=== PATIENT | female | born 1950 | race Caucasian/White ===

== ENCOUNTER 2017-05-05 05:22 | Observation (INO) | payer MEDICARE, BC ==
[2017-05-05] VITALS (14 sets, daily range): BP systolic 104–148; BP diastolic 49–76; PULSE 62–75; TEMP 98–98.7
[~2017-05-05] VITALS: Ht 162.6 cm; Wt 80.7 kg
[~2017-05-05 05:22] MED LIST: ASPI325T6 PO; HOME MEDS PO; NO HOME MEDICATIONS; [UNRECOGNIZED DRUG - OTHER] PO
[2017-05-05 05:55] LABS: BASO # 0.1 (0.0-0.2); BASO % 1.1 % (0.0-2.0); EOS # 0.1 (0.0-0.7); EOS % 1.4 % (0-4.0); GRAN # 3.8 (1.4-6.5); GRAN % 53.6 % (42.2-75.2); HEMATOCRIT 41.2 % (37.0-47.0); HEMOGLOBIN 13.7 g/dl (12.5-16.0); LYMPH # 2.5 (1.2-3.4); MEAN CELL VOLUME 85 fl (80.0-100.0); MEAN CORPUSCULAR HEMOGLOBIN 28 pg (27.0-31.0); MEAN CORPUSCULAR HGB CONC 33 g/dl (33.0-37.0); MEAN PLATELET VOLUME 10.2 fl (7.4-10.4); MONO # 0.6 (0.1-0.6); MONO % 8.5 % (1.7-9.3); PLATELET COUNT 266 K/mm3 (130-400); RED BLOOD COUNT 4.86 M/mm3 (4.10-5.30); REDCELL DISTRIBUTION WIDTH-CV 13.6 % (11.5-14.5)
[2017-05-05 06:00] LABS: INR 0.9 (0.8-3.0)
[2017-05-05 06:03] LABS: PARTIAL THROMBOPLASTIN TIME 30.9 SECONDS (26.0-37.0)
[2017-05-05 06:06] LABS: ADJUSTED CALCIUM 9.3 mg/dL (8.4-10.2); ALANINE AMINOTRANSFERASE 31 U/L (9-52); ALBUMIN 4.5 gm/dL (3.5-5.0); ALKALINE PHOSPHATASE 59 U/L (50-136); ANION GAP 10 mmol/L (7-16); BILIRUBIN,TOTAL 0.8 mg/dL (0.0-1.0); BLOOD UREA NITROGEN 10 mg/dL (7-17); CALCIUM 9.7 mg/dL (8.4-10.2); CARBON DIOXIDE 28 mmol/L (22-30); CHLORIDE 104 mmol/L (98-107); CREATININE, serum 0.77 mg/dL (0.52-1.25); GLUCOSE 103 mg/dL (74-106); POTASSIUM 5.2 mmol/L (3.4-5.0); SODIUM 142 mmol/L (137-145); TOTAL PROTEIN 7.4 gm/dL (6.4-8.2)
[2017-05-05 06:20] LABS: TROPONIN-I < 0.012 ng/mL (0.000-0.034)
[2017-05-05 08:55] LABS: POTASSIUM 4.2 mmol/L (3.4-5.0)
[2017-05-05 09:16] LABS: TROPONIN-I < 0.012 ng/mL (0.000-0.034)
[2017-05-05] MEDS ORDERED: ASPIRIN E.C. 8181 MG PO (16:51)
[2017-05-05] MEDS ORDERED: LIPITOR 10MG10 MG PO (16:51)
[2017-05-05] MEDS ORDERED: PROTONIX 40MG T40 MG PO (16:52)
[2017-05-05] MEDS ORDERED: NAPROSYN500 MG PO (16:53)
== END 2017-05-05 17:41 | disposition home or self-care (01) ==
LOC: COL.ER 05:22 → MEDICAL 06:40
PROVIDERS: Family Medicine; Physician Assistant
DX: I25.10 Atherosclerotic heart disease of native coronary artery without angina pectoris (principal); E78.5 Hyperlipidemia, unspecified; I35.1 Nonrheumatic aortic (valve) insufficiency; Z90.710 Acquired absence of both cervix and uterus; Z90.49 Acquired absence of other specified parts of digestive tract; Z85.820 Personal history of malignant melanoma of skin; Z82.3 Family history of stroke; Z82.49 Family history of ischemic heart disease and other diseases of the circulatory system
CPT/HCPCS: C1769; G0378; J1644; J2250; J3010; Q9967

== ENCOUNTER 2019-09-14 13:28 | Emergency (ER) | payer MEDICARE, BC ==
[~2019-09-14] VITALS: Ht 162.6 cm; Wt 78.2 kg
[~2019-09-14 13:28] MED LIST changes: +ASPIRIN E.C. 8181 MG PO; +LIPITOR 10MG10 MG PO; +NAPROSYN500 MG PO; +PROTONIX 40MG T40 MG PO
[2019-09-14 14:16] VITALS: TEMP 97.7
[2019-09-14 15:26] LABS: BASO # 0.1 (0.0-0.2); BASO % 1.1 % (0.0-2.0); EOS # 0.1 (0.0-0.7); EOS % 1.4 % (0-4.0); GRAN # 4.3 (1.4-6.5); GRAN % 59.9 % (42.2-75.2); HEMOGLOBIN 15.1 g/dl (12.5-16.0); LYMPH # 2.1 (1.2-3.4); LYMPH % 29.4 % (20.0-51.0); MEAN CELL VOLUME 88 fl (80.0-100.0); MEAN CORPUSCULAR HEMOGLOBIN 28 pg (27.0-31.0); MEAN CORPUSCULAR HGB CONC 32 g/dl (33.0-37.0); MEAN PLATELET VOLUME 10.6 fl (7.4-10.4); MONO # 0.6 (0.1-0.6); MONO % 7.9 % (1.7-9.3); PLATELET COUNT 311 K/mm3 (130-400); RED BLOOD COUNT 5.35 M/mm3 (4.10-5.30); REDCELL DISTRIBUTION WIDTH-CV 13.3 % (11.5-14.5)
[2019-09-14 15:46] LABS: ALANINE AMINOTRANSFERASE 29 U/L (9-52); ALKALINE PHOSPHATASE 75 U/L (50-136); ANION GAP 11 mmol/L (7-16); AST,SGOT 23 U/L (15-37); BILIRUBIN,TOTAL 0.7 mg/dL (0.0-1.0); BLOOD UREA NITROGEN 13 mg/dL (7-17); CALCIUM 10.6 mg/dL (8.4-10.2); CARBON DIOXIDE 28 mmol/L (22-30); CHLORIDE 106 mmol/L (98-107); CREATININE, serum 0.75 (0.52-1.25); GLUCOSE 117 mg/dL (74-106); LIPASE 259 U/L (23-300); POTASSIUM 4.1 mmol/L (3.4-5.0); SODIUM 144 mmol/L (137-145)
[2019-09-14 15:48] LABS: C-REACTIVE PROTEIN 0.5 mg/dL (0.0-0.9)
[2019-09-14 15:55] LABS: TROPONIN-I < 0.012 ng/mL (0.000-0.035)
[2019-09-14 16:52] VITALS: BP 105/64; PULSE 73
== END 2019-09-14 16:55 | disposition home or self-care (01) ==
LOC: COL.ER 13:28
PROVIDERS: Emergency Medicine
DX: R07.89 Other chest pain (principal); R00.2 Palpitations; K21.9 Gastro-esophageal reflux disease without esophagitis; E78.00 Pure hypercholesterolemia, unspecified; Z90.89 Acquired absence of other organs; Z90.710 Acquired absence of both cervix and uterus; Z95.9 Presence of cardiac and vascular implant and graft, unspecified